=== PATIENT | male | born 1940 | race Caucasian/White ===

== ENCOUNTER → 2017-02-08 | Outpatient (CLI) | payer MEDICARE, OTHER ==
[~2017-02-08] VITALS: Ht 182.9 cm; Wt 83.5 kg
[~2017-02-08] MED LIST: ADVAIR 100-501 EACH INH; ASPIR 8181 MG PO; BENADRYL 25MG C25 MG PO; CRESTOR10 MG PO; FINASTERIDE5 MG PO; FISH OIL 1,0001 EACH PO; FLOMAX 0.4 MG0.4 MG PO; NEURONTIN 400400 MG PO; NORCO 10-325 T1 EACH PO; PROAIR HFA8.5 GM INH; PYRIDOSTIGMINE60 MG PO; SPIRIVA18 MCG INH; SYNTHROID25 MCG PO; THEO-24200 MG PO; VALIUM 5 MG TAB5 MG PO
== END ==
LOC: CT 06:06
DX: N17.9 Acute kidney failure, unspecified (principal)

== ENCOUNTER 2017-02-13 11:11 | Emergency (ER) | payer MEDICARE, OTHER ==
[~2017-02-13 11:11] MED LIST changes: -ASPIR 8181 MG PO; -SPIRIVA18 MCG INH
[2017-02-13 14:15] LABS: HEMOGLOBIN 12.3 gm/dl (14.0-17.5); RED BLOOD COUNT 4.13 M/UL (4.20-5.50); WHITE BLOOD COUNT 6.8 K/UL (4.5-11.0)
[2017-02-19] MEDS ORDERED: ASPIR 8181 MG PO (08:22)
[2017-02-19] MEDS ORDERED: SPIRIVA18 MCG INH (08:22)
== END 2017-02-13 17:00 | disposition home or self-care (01) ==
LOC: ER1 11:11
PROVIDERS: Specialist/Technologist Athletic Trainer
DX: J44.9 Chronic obstructive pulmonary disease, unspecified (principal); I12.9 Hypertensive chronic kidney disease with stage 1 through stage 4 chronic kidney disease, or unspecified chronic kidney disease; N18.9 Chronic kidney disease, unspecified; E03.9 Hypothyroidism, unspecified; Z90.49 Acquired absence of other specified parts of digestive tract; Z79.891 Long term (current) use of opiate analgesic; Z79.899 Other long term (current) drug therapy
CPT/HCPCS: 36415; 71010; 80053; 81001; 82550; 82553; 83605; 83690; 83874; 84484; 85025; 93005; 99284; J7050

== ENCOUNTER → 2017-02-19 | Outpatient (CLI) | payer MEDICARE, OTHER ==
[~2017-02-19] VITALS: Ht 182.9 cm; Wt 83.5 kg
[~2017-02-19] MED LIST changes: +ASPIR 8181 MG PO; +SPIRIVA18 MCG INH
== END ==
LOC: CT 06:53
PROC: 0TB13ZX Excision of Left Kidney, Percutaneous Approach, Diagnostic (ICD-10-PCS; principal; 2017-02-19)
DX: N17.9 Acute kidney failure, unspecified (principal)
CPT/HCPCS: 77012; 88305; 88313; 88346; 88348